=== PATIENT | female | born 1955 | race Caucasian/White ===

== ENCOUNTER 2017-02-02 05:55 | Day surgery (SDC) | payer MEDICARE, OTHER ==
[~2017-02-02] VITALS: Ht 162.6 cm; Wt 88.6 kg
[~2017-02-02 05:55] MED LIST: ASPIRIN325 MG PO; ATIVAN1 MG PO; DILAUDID4 MG PO; LOPRESSOR25 MG PO; LUNESTA3 MG PO; MIRALAX17 GM PO; NEXIUM40 MG PO; PERICOLACE; PROTONIX40 MG PO; SOMA350 MG PO; TOPROL XL25 MG PO; VIBRAMYCIN 100100 MG PO; ZOFRAN4 MG PO
[2017-02-02 06:56] LABS: BASOPHILS 0.2 % (0.0-2.0); EOSINOPHILS 2.8 % (0-7); HEMOGLOBIN 11.8 g/dL (12-16); IMMATURE GRANULOCYTES 0.2 % (0-5); LYMPHOCYTES 38.4 % (15-50); MCH 25.7 pg (26.0-34.0); MCHC 31.1 g/dL (31.0-37.0); MCV 82.6 fL (80.0-100.0); MONOCYTES 7.6 % (2-11); NEUTROPHILS 50.8 % (40-80); RDW 23.5 % (11.5-14.5); WBC 4.7 10x3/uL (4.8-10.8)
[2017-02-02 07:09] LABS: ALBUMIN 3.4 g/dL (3.4-5.0); ALKALINE PHOSPHATASE 99 U/L (46-116); ALT (SGPT) 29 U/L (10-68); BILIRUBIN - TOTAL 0.27 mg/dL (0.2-1.3); CALC OSMOLALITY 280 mosm/kg (275-300); CALCIUM 8.6 mg/dL (8.5-10.1); CARBON DIOXIDE 28.4 mmol/L (21.0-32.0); CHLORIDE - SERUM 106 mmol/L (98-107); CREATININE - SERUM 0.8 mg/dL (0.6-1.3); GLUCOSE 104 mg/dL (74-106); POTASSIUM - SERUM 3.8 mmol/L (3.5-5.1); PROTEIN - SERUM 6.7 g/dL (6.4-8.2); SODIUM 142 mmol/L (136-145); UREA NITROGEN 8 mg/dL (7-18); eGFR NON AFRICAN AMERICAN 77 mL/min (90-120)
[2017-02-02] MEDS ORDERED: FERROUS SULFAT140 MG PO (07:09)
[2017-02-02] MEDS ORDERED: COLACE100 MG PO (07:09)
[2017-02-02] MEDS ORDERED: LUNESTA3 MG PO (07:10)
[2017-02-02 07:21] LABS: PLATELET COUNT 197 10x3/uL (130-400)
[2017-02-02 07:25] VITALS: BP 130/64; Ht 162.6 cm; Wt 88.6 kg
--- NOTE | 2017-02-02 08:35 | NUR ---
0815-RECEIVED PT FROM GI LAB AWAKE AND ALERT. VSS NO DISTRESS NOTED AT THIS TIME. CALL LIGHT IN REACH FAMILY AT BEDSIDE. WILL CONTINUE TO MONITOR FULL LIQUID TRAY GIVEN 0830-REPORT TO URIEL BALES
[2017-02-02] MEDS ORDERED: ZANTAC150 MG PO (09:12)
--- NOTE | 2017-02-02 16:02 | NUR ---
0855 IV DC'ED WITH CATH INTACT & 650 ML LTC. PRESSURE TO SITE. DRESSING. Ioana PELAEZ R.N. 0915 DRESSED, AWAKE & ALERT. GIVEN DISCHARGE INSTRUCTIONS INCLUDING MED REC, SHEET LISTING NSAIDS & BLOOD THINNERS TO AVOID, & D/C INSTRUCTIONS SHEET POST ENDOSCOPIC PROCEDURES LISTING 2 UPCOMING SCHEDULED PROCEDURES: GASTRIC EMPTYING SCAN & MODIFIED BARIUM SWALLOW WITH SPEECH THERAPY. PT VOICED UNDERSTANDING. TO PRIVATE CAR PER WHEELCHAIR BY VOLUNTEER. HOME WITH MALE FAMILY MEMBER. Ioana PELAEZ R.N.
--- NOTE | 2017-02-03 12:03 | OP ---
PATIENT NAME: NOREEN MCWILLIAMS MEDICAL RECORD: [id number] :57 LOCATION:D.OPS ADMISSION DATE: SURGEON: NICHOLAS VINSON DO DATE OF OPERATION: 02/02/2017 PROCEDURE: EGD with biopsies. SCOPE: Olympus video gastroscope. MEDICATIONS: Propofol 150 mg per anesthesia. INDICATIONS FOR TIVA: High risk for aspiration. INDICATIONS FOR PROCEDURE: Epigastric abdominal pain, anemia, dysphagia (unspecified) and GERD. FINDINGS: Informed consent was given. The patient was made comfortable with the above medication. After reaching an adequate level of sedation by slow IV push, the patient was placed on her left side. The endoscope was then advanced under direct visualization through the mouth to the second portion of the duodenum. The upper third, middle third, and distal third of the esophagus all appeared normal. At the GE junction, there was some evidence of mild reflux induced esophagitis, LA class grade B. The scope was advanced into the stomach and retroflexed to view the cardia. There was obvious signs of a prior intervention in the form of a Juma fundoplication. There was evidence that the wrap was not over tightened from both the superior and inferior ends of the GE junction. The scope was advanced down into the stomach where there was evidence of food retention. The fundus, body, and antrum of the stomach all appeared normal, without evidence of admission. At the prepyloric region and the proximal pyloric channel, there was some erythema and granularity present consistent with possible gastritis. Random biopsies were taken of the stomach to rule out H. pylori and to look at histology. Scope was advanced into the duodenum where the bulb and second portion of the duodenum appeared normal. Scope was withdrawn from the patient. The patient tolerated the procedure well and there were no complications. ESTIMATED BLOOD LOSS: Less than 3 cc. IMPRESSION: 1. Reflux esophagitis grade B. 2. Possible gastritis of the prepyloric and pyloric regions, random biopsies taken. 3. Prior intervention in the form of a Juma fundoplication. 4. Continued dysphagia without evidence of strictures or stenosis of the esophagus. PLAN AND RECOMMENDATIONS: 1. We will add Zantac 150 mg p.o. q.h.s. regarding symptoms. 2. Modified barium swallow with speech therapy regarding continued oropharyngeal dysphagia. 3. Gastric emptying study regarding abdominal pain and food retention. 4. Further recommendations pending findings on imaging studies. TRANSINT:[id number] Voice Confirmation ID: [id number] DOCUMENT ID: [id number] OPERATIVE REPORT [id number] NOREEN MCWILLIAMS,NICHOLAS Carrion DO at 1203 CC: [id number] DICTATION DATE: 02/02/17805 GENDER STUDIES PROFESSOR: 02/02/17 0914 [facility] 02/02/17 [id number] [place] [address]
== END 2017-02-02 09:15 | disposition home or self-care (01) ==
LOC: D.OPS 05:55
PROVIDERS: Anesthesiology
DX: K21.0 Gastro-esophageal reflux disease with esophagitis (principal); K29.50 Unspecified chronic gastritis without bleeding; D64.9 Anemia, unspecified; R13.10 Dysphagia, unspecified

== ENCOUNTER → 2017-02-05 11:15 | Outpatient (CLI) | payer MEDICARE, OTHER ==
[2017-02-02 07:25] VITALS: BMI 33.5
[~2017-02-05 11:15] MED LIST changes: +COLACE100 MG PO; +FERROUS SULFAT140 MG PO; +ZANTAC150 MG PO
== END | disposition home or self-care (01) ==
LOC: D.NM 11:15
DX: R13.10 Dysphagia, unspecified (principal); K21.9 Gastro-esophageal reflux disease without esophagitis; D64.9 Anemia, unspecified; R10.13 Epigastric pain

== ENCOUNTER 2017-02-11 11:02 | Day surgery (SDC) | payer MEDICARE, OTHER ==
[~2017-02-11] VITALS: Ht 162.6 cm; Wt 86.2 kg
[2017-02-11] MEDS ORDERED: VITAMIN B COMPL1 TAB PO (11:50)
[2017-02-11] MEDS ORDERED: VITAMIN D31000 UNIT PO (11:50)
[2017-02-11 11:58] VITALS: BP 125/62; Ht 162.6 cm; Wt 86.2 kg
[2017-02-11 12:22] LABS: BASOPHILS 0.2 % (0.0-2.0); EOSINOPHILS 1.4 % (0-7); HEMATOCRIT 41.6 % (36.0-48.0); HEMOGLOBIN 13.1 g/dL (12-16); LYMPHOCYTES 28.9 % (15-50); MCHC 31.5 g/dL (31.0-37.0); MCV 82.7 fL (80.0-100.0); MEAN PLATELET VOLUME 10.1 fL (7.4-10.4); MONOCYTES 7.2 % (2-11); NEUTROPHILS 62.3 % (40-80); PLATELET COUNT 215 10x3/uL (130-400); RBC 5.03 10x6/uL (4.00-5.40); RDW 22.3 % (11.5-14.5); WBC 4.9 10x3/uL (4.8-10.8)
[2017-02-11 12:38] LABS: CALC OSMOLALITY 278 mosm/kg (275-300); CALCIUM 9.4 mg/dL (8.5-10.1); CARBON DIOXIDE 27.2 mmol/L (21.0-32.0); CHLORIDE - SERUM 104 mmol/L (98-107); CREATININE - SERUM 0.8 mg/dL (0.6-1.3); GLUCOSE 97 mg/dL (74-106); POTASSIUM - SERUM 3.6 mmol/L (3.5-5.1); SODIUM 141 mmol/L (136-145); UREA NITROGEN 7 mg/dL (7-18); eGFR NON AFRICAN AMERICAN 77 mL/min (90-120)
[2017-02-11] MEDS ORDERED: LINZESS290 MCG PO (15:23)
--- NOTE | 2017-02-12 11:10 | OP ---
PATIENT NAME: NOREEN MCWILLIAMS MEDICAL RECORD: [id number] :57 LOCATION:D.OPS ADMISSION DATE: SURGEON: NICHOLAS VINSON DO DATE OF OPERATION: 02/11/2017 PROCEDURE: Colonoscopy. SCOPE: Olympus video pediatric colonoscope. MEDICATIONS: Propofol given IV per anesthesia, under general anesthesia secondary to high risk for aspiration. INDICATIONS FOR PROCEDURE: Personal history of colon polyps, right lower quadrant abdominal pain, constipation, anemia, family history positive for GI tract cancer, occult blood in stools. FINDINGS: Informed consent was given. The patient was made comfortable with propofol by slow IV push per anesthesia. After an adequate level of sedation, the patient was placed in her left side. A digital rectal examination was performed and was normal. The endoscope was then advanced under direct visualization through the rectum to the cecum, evidenced by the appendiceal orifice, ileocecal valve, and cecal folds. The scope was then withdrawn slowly while the mucosa was carefully examined. There was no evidence of polyps or diverticula on this examination. There were no other abnormalities. Retroflexion was performed in the rectum without evidence of hemorrhoids. Scope was withdrawn from the patient. The patient tolerated the procedure well and there were no complications. IMPRESSION: 1. Normal colonoscopy. 2. Chronic idiopathic constipation. PLAN AND RECOMMENDATIONS: 1. Discharge home when recovery parameters are met. 2. Continue current medications. 3. Trial of Linzess 290 mcg daily for chronic idiopathic constipation. 4. High-fiber diet. 5. Follow up in the GI clinic as needed. 6. Recall colonoscopy in 5 years based on personal history of colon polyps and family history of cancer of the GI tract. TRANSINT:[id number] Voice Confirmation ID: [id number] DOCUMENT ID: [id number] NICHOLAS VINSON DO at 1110 CC: [id number] DICTATION DATE: 02/11/17 1507 HEEL PAINTER: 02/11/17 1602 [facility] 02/11/[address] [address]
== END 2017-02-11 16:35 | disposition home or self-care (01) ==
LOC: D.OPS 11:02
PROVIDERS: Anesthesiology
DX: K59.04 Chronic idiopathic constipation (principal); Z86.010 Personal history of colon polyps; D64.9 Anemia, unspecified; Z80.0 Family history of malignant neoplasm of digestive organs

== ENCOUNTER → 2017-02-17 12:30 | Outpatient (CLI) | payer MEDICARE, OTHER ==
[2017-02-11 11:58] VITALS: BMI 32.7
[~2017-02-17 12:30] MED LIST changes: +LINZESS290 MCG PO; +VITAMIN B COMPL1 TAB PO; +VITAMIN D31000 UNIT PO
== END | disposition home or self-care (01) ==
LOC: D.RAD 12:30
DX: R10.13 Epigastric pain (principal); D64.9 Anemia, unspecified; R13.10 Dysphagia, unspecified; K21.9 Gastro-esophageal reflux disease without esophagitis

== ENCOUNTER → 2019-04-06 09:18 | Outpatient (CLI) | payer MEDICARE, OTHER ==
[2017-02-11 11:58] VITALS: BMI 32.7
== END | disposition home or self-care (01) ==
LOC: D.HCCARDIO 09:18
PROVIDERS: ATTEND Internal Medicine Cardiovascular Disease
DX: I25.10 Atherosclerotic heart disease of native coronary artery without angina pectoris (principal)

== ENCOUNTER 2019-04-27 11:20 | Outpatient (CLI) | payer MEDICARE, OTHER ==
[~2019-04-27] VITALS: Ht 162.6 cm; Wt 86.4 kg
--- NOTE | ~2019-04-27 | HEMODYNAMI ---
PATIENT:NOREEN MCWILLIAMS MEDICAL RECORD: [id number] : 57 LOCATION:DRaquelCAT ADMISSION DATE: 04/27/19 Generatedon:04/27/201914:16 Patient name: NOREEN MCWILLIAMS Patient #: [id number] SSN: : 1955 Date of study: 04/27/2019 Page: Of Hemodynamic Procedure Report Patient Data Patient Demographics Procedure consent was obtained First Name: NOREEN Gender: Female Last Name: POPPY : 1955 [facility] Initial: KAI Age: 64 year(s) Patient #: [id number] Race: Unknown Additional ID: [id number] Contact details [address]: [address] [place] [address] State: [place] City: [place] Zip code: [address] Past Medical History Allergies Allergen Reaction Date Comments Reported Other allergy 04/27/2019 AMITRIPTYLINE, CODEINE, CYMBALTA, FENTANYL, GABAPENTIN, HYDROCODONE, LYRICA, MORPHINE, NORCO, OXYCODONE, PRAVASTATIN, PYRIDIUM, SULFA, TALWIN, TORADOL Admission Admission Data Admission Date: 04/27/2019 Admission Time: 11:20 Height (in.): 64 BSA: 1.9 (m2) Height (cm.): 162.56 BMI: 32.1 (kg/m2) Weight (lbs.): 187 Weight (kg.): 84.82 Lab Results Lab Result Date: 04/27/2019 Lab Result Time: 0:00 Biochemistry Name Units Result Min Max BUN mg/dl 14 --(--*-)-- 7 18 Creatinine mg/dl 0.7 --(*---)-- 0.6 1.3 CBC Name Units Result Min Max Hematocrit % 41.1 -*(----)-- 42 54 Hemoglobin g/dl 14.1 --(*---)-- 13.5 17.5 Procedure Procedure Types Cath Procedure Diagnostic Procedure LHC LHC w/Coronaries w/Grafts Sedation Charges Moderate Sedation up to 15 minutes Procedure Description Procedure Date Procedure Date: 04/27/2019 Procedure Start Time: 13:54 Procedure End Time: 14:15 Procedure Staff Name Function Walter Sheets MD Performing Physician Alicia Salter RT Monitor El Rice RT Scrub Adele Bullock RN Nurse Procedure Data Cath Procedure Fluoroscopy Diagnostic fluoroscopy Total fluoroscopy Time: 3.1 time: 3.1 min min Diagnostic fluoroscopy Total fluoroscopy dose: 486 dose: 486 mGy mGy Contrast Material Contrast Material Type Amount (ml) Isovue 300 65 Entry Location Entry Primary Successful Side Size Upsize Upsize Entry Closure Succes sful Closure Location (Fr) 1 (Fr) 2 (Fr) Remarks Device Remarks Femoral Right 5 Fr Exoseal artery Estimated blood loss: 5 ml Diagnostic catheters Device Type Used For End Catheter Placement MULTIPACK JL 4.0 5Fr Procedure catheter DIAGNOSTIC AR MOD 5Fr Procedure Catheter ([id number]) DIAGNOSTIC IM 5Fr Procedure catheter ([id number]) MULTIPACK Pigtail 5 Fr Procedure catheter Procedure Complications No complications Procedure Medications Medication Administration Route Dosage Oxygen etCO2 Nasal cannula 2 l/min Lidocaine 2% added to field 20 Heparin Flush Bag added to field 2 bags (1000units/500ml NS) Zofran I.V. 4 mg 0.9% NaCl I.V. 100 ml/hr Versed I.V. 1 mg Demerol I.V. 25 mg Versed I.V. 1 mg Versed I.V. 1 mg Demerol I.V. 25 mg Versed I.V. 1 mg Hemodynamics Rest BSA: 1.9 (m2) HGB: 14.1 (g/dl) O2 Consumption: Estimated: 160.95 (ml/min) O2 Con sumption indexed: Estimated:84.71 (ml/min/m) Heart Rate: 46 (bpm) Pressure Samples Time Site Value (mmHg) Purpose Heart Use Rate(bpm) 14:08 LV 106/4,16 Snapshot 79 14:08 AO 109/52(77) Pullback 62 14:08 LV 125/-1,30 Pullback 62 Gradients Valve Time Site 1 Site 2 Mean SEP/DFP Peak To Heart Use (mmHg) (sec/min) Peak Rate (mmHg) (bpm) Aortic 14:08 LV AO 10 25 16 62 125/-1,30 109/52(77) Calculations Valve P-P Mean Valve Index Valve Source Name Gradient Area Flow (cm2) Aortic 16 10 16 10 Snapshots Pre Cath Intra NCS Post Cath Vital Signs Time Heart Resp SPO2 etCO2 NIBP (mmHg) Rhythm Pain Sedation Rate (ipm) (%) (mmHg) Status Level (bpm) 13:44:59 52 11 100 40.8 155/71(90) SB 0 (11) 10(A) , No pain 13:49:19 81 17 100 41.6 136/68(106) NSR 0 (11) 10(A) , No pain 13:54:26 53 12 97 8.1 127/68(106) SB 0 (11) 9(A) , No pain 13:58:46 55 15 98 11.8 121/63(91) SB 0 (11) 9(A) , No pain 14:02:54 57 19 98 23.7 112/57(97) NSR 0 (11) 9(A) , No pain 14:07:12 58 11 99 41.6 112/59(99) NSR 0 (11) 9(A) , No pain 14:11:28 61 12 99 19.3 122/60(93) NSR 0 (11) 10(A) , No pain Medications Time Medication Route Dose Verified Delivered Reason Notes Eff ectiveness by by 13:44:14 Oxygen etCO2 2 Walter Buffie used for Nasal l/min Sudeep Bullock RN procedure cannula 13:44:21 Lidocaine 2% added 20ml Walter Walter for local to vial Sudeep Sheets MD anesthetic field 13:44:26 Heparin Flush added 2 Walter Walter used for Bag to bags Sudeep Sheets MD procedure (1000units/500ml field NS) 13:44:34 Zofran I.V. 4 mg Walter Buffie Per Sudeep Bullock RN physician 13:44:45 0.9% NaCl I.V. 100 Walter Buffie Per ml/hr Sudeep Bullock RN physician 13:49:19 Versed I.V. 1 mg Walter Buffie for Sudeep Bullock RN sedation 13:49:32 Demerol I.V. 25 mg Walter Buffie for Sudeep Bullock RN sedation 13:54:39 Versed I.V. 1 mg Walter Buffie for Sudeep Bullock RN sedation 14:01:31 Versed I.V. 1 mg Walter Buffie for Sudeep Bullock RN sedation 14:01:38 Demerol I.V. 25 mg Walter Eviie for Sudeep Bullock RN sedation 14:06:22 Versed I.V. 1 mg Walter Buffie for Sudeep Bullock RN sedation Procedure Log Time Note 13:17:01 Signed procedure consent form obtained from patient. 13:17:02 Diagnostic Cath status Elective 13:17:26 Plan of Care:Hemodynamics will remain stable., Cardiac rhythm will remain stable., Comfort level will be maintained., Respiratory function will remain adequate., Patient/ family verbilizes understanding of procedure., Procedure tolerated without complication., Recovers from procedure without complications.. 13:17:28 Time tracking: Regular hours (M-F 7:00 - 5:00) 13:18:08 H&P Date Dictated: 03/28/2019 Within 30 days and on chart., H&P Addendum completed by physician on day of procedure. (MUST COMPLETE FOR ALL OUTPATIENTS). 13:19:12 Patient allergic to Other allergyAMITRIPTYLINE, CODEINE, CYMBALTA, FENTANYL, GABAPENTIN, HYDROCODONE, LYRICA, MORPHINE, NORCO, OXYCODONE, PRAVASTATIN, PYRIDIUM, SULFA, TALWIN, TORADOL 13:19:23 Patient Weight : 187 lbs 13:19:27 Patient Height : 64 inches 13:21:44 Lab Result : BUN 14 mg/dl 13:21:44 Lab Result : Hemoglobin 14.1 g/dl 13:21:44 Lab Result : Creatinine 0.7 mg/dl 13:21:44 Lab Result : Hematocrit 41.1 % 13:22:25 [place] Rice RT(R) sent for patient. Start room use. 13:32:12 Patient received from Pre/Post Procedure Room to CCL 1 Alert and oriented. Tansferred to table in Supine position. 13:32:13 Warm blankets applied, and james hugger turned on for patient comfort. 13:32:14 Correct patient and procedure confirmed by team. 13:32:14 ECG and BP/O2 sat monitors applied to patient. 13:39:45 Pre-procedure instructions explained to patient. 13:39:45 Pre-op teaching completed and patient verbalized understanding. 13:39:47 Family in patients room. 13:39:48 Patient NPO since Midnight. 13:39:51 Is patient on blood thinner?No 13:39:53 Patient diabetic? No. 13:39:58 Patient not . Patient is over age 55. 13:40:01 Previous problem with sedation/anesthesia? No ? 13:40:03 Snore? Yes 13:40:04 Sleep apnea? No 13:43:37 Vital chart was started 13:43:38 Baseline sample Acquired. 13:43:43 Rhythm: sinus bradycardia 13:43:44 Full Disclosure recording started 13:43:47 Deviated septum? No 13:43:48 Opens mouth fully? Yes 13:43:49 Sticks out tongue? Yes 13:43:51 Airway obstruction? No ? 13:43:52 Dentures? No ? 13:43:55 Pre procedure: right dorsailis pedis pulse 1+ Palpable, but thready & weak; easily obliterated 13:44:03 Patient pain scale 0/10 ?. 13:44:07 IV patent on arrival in left hand with 0.9% NaCl at [facility]. 13:44:10 Lab results completed and on chart. 13:44:13 Right groin area was prepped with chlora-prep and draped in sterile fashion 13:44:14 Oxygen 2 l/min etCO2 Nasal cannula was administered by Adele Bullock RN; used for procedure; 13:44:14 Alarms reviewed by R. N. 13:44:15 Sharps counted by scrub and verified by R.N. 13:44:18 Use device set Femoral Dx 13:44:20 ACIST Syringe (30164) opened to sterile field. 13:44:20 Bag Decanter (2002S) opened to sterile field. 13:44:21 Lidocaine 2% 20ml vial added to field was administered by Walter Sheets MD; for local anesthetic; 13:44:21 ACIST Hand Control (34539) opened to sterile field. 13:44:23 ACIST Manifold (38879) opened to sterile field. 13:44:24 Tegaderm 4 x 4 (1626W) opened to sterile field. 13:44:26 Heparin Flush Bag (1000units/500ml NS) 2 bags added to field was administered by Walter Shetes MD; used for procedure; 13:44:26 Medline Cath Pack ([id number]) opened to sterile field. 13:44:26 DIAGNOSTIC WIRE .035 260cm J wire (885372) opened to sterile field. 13:44:27 DIAGNOSTIC Multipack 5Fr catheter set ([id number]) opened to sterile field. 13:44:28 SHEATH 5FR [place] (PBY687) opened to sterile field. 13:44:34 Zofran 4 mg I.V. was administered by Adele Bullock RN; Per physician; 13:44:45 0.9% NaCl 100 ml/hr I.V. was administered by Adele Bullock RN; Per physician; 13:48:07 --------ALL STOP TIME OUT------ 13:48:08 Final Timeout: patient, procedure, and site verified with staff and physician. All members of the team are in agreement. 13:48:09 Right groin site verified by team. 13:48:12 Maximum allowable Isovue 300 dose 300ml. Physician notified. (300ml for normal creatinines. For patients with creatinine of 1.7 or higher multiply weight(kg) x 5 divided by creatinine.) 13:48:15 Fire Safety Assessment: A--An alcohol-based skin anteseptic being used preoperatively., C--Open oxygen or nitrous oxide is being used., D--An ESU, laser, or fiber-optic light is being used. 13:48:19 Physical assessment completed. ASA score P 2 - A patient with mild systemic disease as per Walter Sheets MD. 13:48:22 Sedation plan: IV Moderate Sedation Medication:Versed 13:49:19 Versed 1 mg I.V. was administered by Adele Bullock RN; for sedation; 13:49:32 Demerol 25 mg I.V. was administered by Adele Bullock RN; for sedation; 13:50:49 Zero performed for pressure channel P1 13:53:28 Procedure started. 13:54:03 Local anesthetic to right femoral artery with Lidocaine 2% by Walter Sheets MD.INITIAL ACCESS ONLY 13:54:39 Versed 1 mg I.V. was administered by Adele Bullock RN; for sedation; 13:58:39 A 5 Fr sheath was inserted into the Right Femoral artery 13:59:34 A MULTIPACK JL 4.0 5Fr catheter was advanced over the wire and used for Procedure. 14:01:07 LCA angiography performed. 14:01:09 Catheter exchanged over wire. 14:01:31 Versed 1 mg I.V. was administered by Adele Bullock RN; for sedation; 14:01:34 A DIAGNOSTIC AR MOD 5Fr Catheter ([id number]) was advanced over the wire and used for Procedure. 14:01:38 Demerol 25 mg I.V. was administered by Adele Bullock RN; for sedation; 14:02:37 RCA angiography performed. 14:03:12 SVG to RCA angiography performed. 14:03:39 SVG to OM angiography performed. 14:04:14 Catheter exchanged over wire. 14:04:53 A DIAGNOSTIC IM 5Fr catheter ([id number]) was advanced over the wire and used for Procedure. 14:06:16 MCCALLUM to LAD angiography performed. 14:06:22 Versed 1 mg I.V. was administered by Adele Bullock RN; for sedation; 14:06:34 Catheter exchanged over wire. 14:07:32 A MULTIPACK Pigtail 5 Fr catheter was advanced over the wire and used for Procedure. 14:08:06 LV gram done using LOUIE 14:08:08 Injector settings: Ml/sec: 102, Volume: 0, 14:08:25 LV hemodynamics recorded. 14:08:36 EF : 60 % 14:08:51 Catheter removed. 14:09:04 EXOSEAL 5Fr (EX500) opened to sterile field. 14:10:29 Sheath removed intact; hemostasis achieved with Exoseal to the Right Femoral artery. 14:10:35 Procedure ended.(Physican Out) 14::53 Fluoroscopy dose: 486 mGy 14:10:53 Flurop Dose total: 486 14:11:02 Fluoroscopy time 03.10 minutes. 14:11:06 Contrast amount:Isovue 300 65ml. 14:11:07 Sharps counted by scrub and verified by R.N. 14:11:10 Post-op/insertion site Right Femoral artery dressed using a 4 x 4 and Tegaderm. 14:11:13 Post-procedure physical assessment completed. ASA score P 2 - A patient with mild systemic disease as per Walter Sheets MD. 14:11:16 Post procedure rhythm: sinus bradycardia 14:11:18 Estimated blood loss: 5 ml 14:11:20 Post procedure instruction explained to patient.Patient verbalizes understanding. 14:11:21 Patient needs reinforcement of post procedure teaching. 14:11:47 Procedure type changed to Cath procedure, Diagnostic procedure, LHC, LHC w/Coronaries w/Grafts, Sedation Charges, Moderate Sedation up to 15 minutes 14:12:06 Procedure and supply charges have been captured, reviewed, submitted and are correct. 14:12:09 Procedure Complication : No complications 14:15:22 Vital chart was stopped 14:15:23 See physician's report for complete and final results. 14:15:24 Report given to Pre/Post Procedure Room. 14:15:27 Patient transfered to Pre/Post Procedure Room with Bed. 14:15:28 Procedure ended. 14:15:28 Full Disclosure recording stopped 14:15:32 End room use (Document Last) Device Usage Item Name Manufacture Quantity Catalog Hospital Part Current Minimal L ot# / Number Charge Number Stock Stock Serial# Code ACIST Acist 1 24185 458430 248531 766968 20 Syringe Medical (13108) Systems Inc Bag Microtek 1 816596 97134 824302 5 Decanter Medical Inc. () ACIST Hand Acist 1 21158 282428 571553 337878 5 Control Medical (62990) Systems Inc ACIST Acist 1 01135 164395 316099 536260 5 Manifold Medical (13814) Systems Inc Tegaderm 4 3M 1 1626W 466494 973926 811068 5 x 4 (1626W) Medline Medline 1 [id number] 853556 50946 463684 5 Cath Pack ([id number]) DIAGNOSTIC [facility] 1 863398 723056 563559 950858 30 WIRE .035 260cm J wire (523889) DIAGNOSTIC Cardinal 1 [id number] 862103 39804 622808 30 Multipack Health 5Fr catheter set (QT8069) SHEATH 5FR Terumo 1 AGN115 906274 881462 110178 5 [place] (NGE665) MULTIPACK Cardinal 1 382608 5 JL 4.0 5Fr Health catheter DIAGNOSTIC Cardinal 1 [id number] 434526 038061 265739 15 AR MOD 5Fr Health Catheter ([id number]) DIAGNOSTIC Cardinal 1 [id number] 526039 266729 917020 5 IM 5Fr Health catheter ([id number]) MULTIPACK Cardinal 1 482584 5 Pigtail 5 Health Fr catheter EXOSEAL 5Fr Cardinal 1 EX500 572926 732171 128139 10 (EX500) Health Signature Audit [place] Stage Time Signature Unsigned Intra-Procedure 04/27/2019 Alicia Salter 2:15:58 PM RT(R) Signatures Monitor : Alicia Salter Signature : RT Date : Time : [id number] [place] [address]
[2019-04-27] MEDS ORDERED: PRALUENT P75 MG/1 ML SC (11:48)
[2019-04-27 11:56] VITALS: BP 138/69; Ht 162.6 cm; Wt 86.4 kg
[2019-04-27 11:59] LABS: BASOPHILS 0.5 % (0-2); EOSINOPHILS 5.3 % (0-7); HEMATOCRIT 41.1 % (36.0-48.0); HEMOGLOBIN 14.1 g/dL (12-16); IMMATURE GRANULOCYTES 0.5 % (0-5); LYMPHOCYTES 38.9 % (15-50); MCH 30.9 pg (26.0-34.0); MCHC 34.3 g/dL (31.0-37.0); MCV 90.1 fL (80.0-100.0); MEAN PLATELET VOLUME 9.6 fL (7.4-10.4); MONOCYTES 7.1 % (2-11); NEUTROPHILS 47.7 % (40-80); PLATELET COUNT 183 10x3/uL (130-400); RBC 4.56 10x6/uL (4.00-5.40); RDW 12.8 % (11.5-14.5); WBC 4.3 10x3/uL (4.8-10.8)
[2019-04-27 12:08] LABS: CALC OSMOLALITY 279 mosm/kg (275-300); CALCIUM 9.1 mg/dL (8.5-10.1); CARBON DIOXIDE 28.9 mmol/L (21.0-32.0); CHLORIDE - SERUM 104 mmol/L (98-107); CREATININE - SERUM 0.7 mg/dL (0.6-1.3); GLUCOSE 97 mg/dL (74-106); POTASSIUM - SERUM 4.2 mmol/L (3.5-5.1); SODIUM 140 mmol/L (136-145); UREA NITROGEN 14 mg/dL (7-18); eGFR NON AFRICAN AMERICAN 90 mL/min (90-120)
--- NOTE | 2019-04-27 14:40 | NUR ---
2L NC, NO RESP DISTRESS. RIGHT GROIN 5F EXOSEAL CDI, NO BLEEDING OR HEMATOMA NOTED. NO C/O PAIN OR NAUSEA. VSS. FAMILY AT BEDSIDE, CALL LIGHT WITHIN REACH.
--- NOTE | 2019-04-27 15:30 | NUR ---
HOB ELEVATED 30 DEGREES. RIGHT GROIN 5F EXOSEAL CDI, NO BLEEDING NOTED. SIPPING ON DRINK AND EATING SANDWICH WITH NO C/O NAUSEA. VSS. WILL CONTINUE TO MONITOR.
--- NOTE | 2019-04-27 16:00 | NUR ---
LEFT PIV D/C'D WITH CATHETER INTACT, BAND AID TO SITE. RIGHT GROIN 5F EXOSEAL CDI. UP TO BEDSIDE TO GET DRESSED. AMBULATED TO RESTROOM.
--- NOTE | 2019-04-27 16:10 | NUR ---
DISCHARGE INSTRUCTIONS GIVEN, VERBALIZED UNDERSTANDING.
--- NOTE | 2019-04-27 16:22 | NUR ---
TAKEN OUT VIA WHEELCHAIR BY CATH GAMER. LEFT FACILITY WITH FAMILY AND ALL PERSONAL BELONGINGS.
== END 2019-04-27 16:22 | disposition home or self-care (01) ==
LOC: D.CATH 11:20
PROVIDERS: ATTEND Internal Medicine Cardiovascular Disease
DX: I25.119 Atherosclerotic heart disease of native coronary artery with unspecified angina pectoris (principal); Z95.1 Presence of aortocoronary bypass graft; Z01.812 Encounter for preprocedural laboratory examination

== ENCOUNTER → 2019-08-16 07:42 | Outpatient (CLI) | payer MEDICARE, OTHER ==
[2019-04-27 11:56] VITALS: BMI 32.7
[~2019-08-16 07:42] MED LIST changes: +PRALUENT P75 MG/1 ML SC
== END | disposition home or self-care (01) ==
LOC: D.RAD 07:42
PROVIDERS: ATTEND Internal Medicine Gastroenterology
DX: R13.10 Dysphagia, unspecified (principal); K21.9 Gastro-esophageal reflux disease without esophagitis; R10.13 Epigastric pain

== ENCOUNTER → 2020-07-09 20:45 | Outpatient (CLI) | payer MEDICARE, OTHER ==
[2019-04-27 11:56] VITALS: BMI 32.7
[2020-07-09 21:32] LABS: CHOL - HDL RATIO 3.9 ratio (2.3-4.1); LDL-HDL RATIO 2.6 ratio (1.5-3.5)
== END | disposition home or self-care (01) ==
LOC: D.LABREF 20:45
PROVIDERS: ATTEND Internal Medicine Cardiovascular Disease
DX: E78.5 Hyperlipidemia, unspecified (principal)

== ENCOUNTER → 2021-03-28 18:23 | Outpatient (CLI) | payer MEDICARE, OTHER ==
[2019-04-27 11:56] VITALS: BMI 32.7
[2021-03-28 19:04] LABS: CHOL - HDL RATIO 2.6 ratio (2.3-4.1); LDL-HDL RATIO 1.2 ratio (1.5-3.5)
== END | disposition home or self-care (01) ==
LOC: D.LABREF 18:23
PROVIDERS: ATTEND Internal Medicine Cardiovascular Disease
DX: I25.810 Atherosclerosis of coronary artery bypass graft(s) without angina pectoris (principal)